=== PATIENT | male | born 1940 | race Caucasian/White ===

== ENCOUNTER 2017-07-18 14:32 | Inpatient (IN) | payer OTHER, BC ==
[~2017-07-18] VITALS: Ht 177.8 cm; Wt 72.3 kg
[~2017-07-18 14:32] MED LIST: ALLOPURINOL300 MG PO; ASPIR-LOW81 MG PO; BENICAR HCT 401 EAC1 PO; BYSTOLIC10 MG PO; CARBIDOPA/LEVO1 EACH PO; CLOPIDOGREL75 MG PO; COMBIGAN O20 DROP/5 BOTH EYES; GLIPIZIDE5 MG PO; GLUCOPHAGE500 MG PO; LIPITOR10 MG PO; METFORMIN HCL500 MG PO; NIFEDIPINE ER30 MG PO; NORTRIPTYLINE H25 MG PO; REQUIP0.5 MG PO; VITAMIN D1000 INTUN PO
[2017-07-18 15:48] LABS: HEMATOCRIT 37.9 % (38.0-50.0); HEMOGLOBIN 12.7 G/DL (12.5-16.6); MCH 26.8 PG (29.0-34.0); MCHC 33.5 G/DL (30.0-36.0); MCV 80.1 FL (86-99); PLATELET COUNT 223 K/uL (156-360); RBC DIS.WIDTH-CV 13.1 % (11.8-14.6); RBC DIS.WIDTH-SD 37.2 % (39-53); RED BLOOD COUNT 4.73 M/uL (4.00-5.50); WHITE BLOOD COUNT 9.1 K/uL (4.1-10.2)
[2017-07-18 15:57] LABS: CARBON DIOXIDE (BICARBONATE) 30.3 MEQ/L (20-31)
[2017-07-18 15:58] LABS: CHLORIDE 86 mEq/L (99-109); POTASSIUM 4.4 mEq/L (3.7-5.4); SODIUM 125 mEq/L (136-147)
[2017-07-18 16:03] LABS: TOTAL BILIRUBIN 0.4 mg/dL (0.0-1.0)
[2017-07-18 16:04] LABS: ALKALINE PHOSPHATASE 182 IU/L (3-129)
[2017-07-18 16:05] LABS: GFR ESTIMATE (CALCULATED) 27 mL/min/ (58.99-99999)
[2017-07-18 16:06] LABS: AST (GOT) 14 IU/L (2-34); UREA NITROGEN (BUN) 33 mg/dL (9-23)
[2017-07-18 16:07] LABS: ALT (GPT) 22 IU/L (3-49)
[2017-07-18 16:08] LABS: CREATININE 2.5 mg/dL (0.6-1.3); GLUCOSE 771 mg/dL (70-99)
[2017-07-18] MEDS ORDERED: BYSTOLIC20 MG PO (18:29)
[2017-07-18] MEDS ORDERED: JANUVIA25 M1 PO (18:34)
[2017-07-18] MEDS ORDERED: DILTIAZEM 24HR240 MG PO (18:35)
[2017-07-18] MEDS ORDERED: HYZAAR 100-21 TABLET PO (18:35)
[2017-07-18] MEDS ORDERED: AVENTYL,PAMELOR50 MG PO (18:36)
[2017-07-18 18:38] LABS: GLUCOSE 734 mg/dL (70-99)
[2017-07-18] MEDS ORDERED: PLAVIX75 MG PO (18:45)
[2017-07-18] MEDS ORDERED: LIPITOR10 MG PO (18:45)
[2017-07-18 18:50] LABS: APPEARANCE CLEAR ((CLEAR)); BILIRUBIN NEGATIVE; BLOOD NEGATIVE; COLOR STRAW ((YELLOW)); GLUCOSE (STRIP) >=500; KETONES NEGATIVE; LEUKOCYTES NEGATIVE; NITRITE NEGATIVE; PROTEIN (STRIP) NEGATIVE; SPECIFIC GRAVITY 1.026 (1.000-1.030); UCUL ADDED? NO; UROBILINOGEN 0.2 MG/DL (0.2-1.0)
[2017-07-19 00:03] VITALS: BP 134/65
[2017-07-19 06:39] LABS: UREA NITROGEN (BUN) 23 mg/dL (9-23)
[2017-07-19 06:44] LABS: CHLORIDE 104 MEQ/L (99-109); CREATININE 1.4 MG/DL (0.6-1.3); GFR ESTIMATE (CALCULATED) 52 mL/min/ (58.99-99999); GLUCOSE 200 mg/dL (70-99); POTASSIUM 3.4 MEQ/L (3.7-5.4); SODIUM 137 MEQ/L (136-147)
[2017-07-19 06:55] VITALS: BP 162/74
[2017-07-19 15:13] VITALS: BP 125/64
[2017-07-20 00:14] VITALS: BP 00/00; BP 164/73
[2017-07-20 06:42] LABS: CHLORIDE 107 MEQ/L (99-109); CREATININE 1.3 MG/DL (0.6-1.3); GFR ESTIMATE (CALCULATED) 57 mL/min/ (58.99-99999); POTASSIUM 3.4 MEQ/L (3.7-5.4); SODIUM 140 MEQ/L (136-147); UREA NITROGEN (BUN) 15 mg/dL (9-23)
[2017-07-20 06:47] LABS: GLUCOSE 79 mg/dL (70-99)
[2017-07-20 07:07] VITALS: BP 149/67
[2017-07-20 16:00] VITALS: BP 167/72
[2017-07-21 00:05] VITALS: BP 182/77
[2017-07-21 06:55] LABS: CHLORIDE 108 MEQ/L (99-109); CREATININE 1.3 MG/DL (0.6-1.3); GFR ESTIMATE (CALCULATED) 57 mL/min/ (58.99-99999); GLUCOSE 146 mg/dL (70-99); SODIUM 140 MEQ/L (136-147); UREA NITROGEN (BUN) 10 mg/dL (9-23)
[2017-07-21 08:10] VITALS: BP 164/78
[2017-07-21 15:33] VITALS: BP 151/72
[2017-07-21 23:39] VITALS: BP 149/66
[2017-07-22 06:21] LABS: CHLORIDE 108 MEQ/L (99-109); CREATININE 1.3 MG/DL (0.6-1.3); GFR ESTIMATE (CALCULATED) 57 mL/min/ (58.99-99999); GLUCOSE 126 mg/dL (70-99); POTASSIUM 4.1 MEQ/L (3.7-5.4); SODIUM 136 MEQ/L (136-147); UREA NITROGEN (BUN) 12 mg/dL (9-23)
[2017-07-22 07:01] VITALS: BP 163/71
[2017-07-22] MEDS ORDERED: NOVOLOG 10100 UNITS/ SC (12:23)
== END 2017-07-22 14:45 | DRG 638 ==
LOC: EME 14:32 → EDOF 19:04 → 5EAST 19:04 → ENRESERV 19:10 → 5EAST 20:33
PROVIDERS: Emergency Medicine; Family Medicine; Nurse Practitioner Family
DX: E11.00 Type 2 diabetes mellitus with hyperosmolarity without nonketotic hyperglycemic-hyperosmolar coma (NKHHC) (principal); N17.9 Acute kidney failure, unspecified; G23.1 Progressive supranuclear ophthalmoplegia [Steele-Richardson-Olszewski]; E11.22 Type 2 diabetes mellitus with diabetic chronic kidney disease; N39.498 Other specified urinary incontinence; G20 Parkinson's disease; I12.9 Hypertensive chronic kidney disease with stage 1 through stage 4 chronic kidney disease, or unspecified chronic kidney disease; K21.9 Gastro-esophageal reflux disease without esophagitis; N18.3 Chronic kidney disease, stage 3 (moderate); E86.0 Dehydration; E78.5 Hyperlipidemia, unspecified; F32.9 Major depressive disorder, single episode, unspecified; Z79.899 Other long term (current) drug therapy; Z79.82 Long term (current) use of aspirin; Z79.4 Long term (current) use of insulin; Z86.73 Personal history of transient ischemic attack (TIA), and cerebral infarction without residual deficits; Z87.891 Personal history of nicotine dependence
CPT/HCPCS: 36415; 71046; 80048; 80053; 81003; 82010; 82803; 82948; 83036; 84999; 85027; 99281; 99285; J1644; J1815; J3480; J7030